=== PATIENT | male | born 1995 | race African-American/Black ===

== ENCOUNTER 2018-03-13 13:03 | Emergency (ER) | payer SELFPAY ==
[~2018-03-13] VITALS: Ht 160 cm; Wt 73.0 kg
[2018-03-13] MEDS ORDERED: KETOROLAC 60MG/2ML VIAL IM ONE (14:30)
[2018-03-13 17:30] VITALS: BP 126/79
== END 2018-03-13 17:40 | disposition home or self-care (01) ==
LOC: ER 13:03
DX: S82.52XA Displaced fracture of medial malleolus of left tibia, initial encounter for closed fracture (principal); S82.832A Other fracture of upper and lower end of left fibula, initial encounter for closed fracture; W50.2XXA Accidental twist by another person, initial encounter; Y93.89 Activity, other specified; Y92.89 Other specified places as the place of occurrence of the external cause; Y99.8 Other external cause status
CPT/HCPCS: 29515; 73610; 96372; 99284; J1885

== ENCOUNTER 2019-08-05 07:21 | Emergency (ER) | payer SELFPAY ==
[~2019-08-05] VITALS: Ht 160 cm; Wt 64.0 kg
[2019-08-05 07:33] VITALS: BP 126/87
== END 2019-08-05 08:05 | disposition home or self-care (01) ==
LOC: ER 08:04
DX: Z00.00 Encounter for general adult medical examination without abnormal findings (principal)
CPT/HCPCS: 99282

== ENCOUNTER 2019-08-05 17:03 | Emergency (ER) | payer SELFPAY ==
[~2019-08-05] VITALS: Ht 160 cm; Wt 63.0 kg
[2019-08-05 17:16] VITALS: BP 121/73
== END 2019-08-05 18:02 | disposition home or self-care (01) ==
LOC: ER 17:03
DX: I49.1 Atrial premature depolarization (principal)
CPT/HCPCS: 93005; 99283

== ENCOUNTER 2019-08-11 08:55 | Emergency (ER) | payer SELFPAY ==
[~2019-08-11] VITALS: Ht 160 cm; Wt 66.0 kg
[2019-08-11 09:14] VITALS: BP 127/63
== END 2019-08-11 11:05 | disposition home or self-care (01) ==
LOC: ER 08:55
DX: R00.2 Palpitations (principal); R00.0 Tachycardia, unspecified
CPT/HCPCS: 93005; 99283

== ENCOUNTER 2019-08-19 08:18 | Emergency (ER) | payer OTHER ==
[~2019-08-19] VITALS: Ht 162.6 cm; Wt 56.0 kg
[2019-08-19 09:57] LABS: BASOPHILS % 0.7 % (0.0-2.0); EOSINOPHILS % 0.7 % (0.0-5.0); HEMATOCRIT. 50.9 % (42.0-52.0); HEMOGLOBIN. 17.6 g/dL (14.0-18.0); LYMPHOCYTES % 15.9 % (20.0-50.0); MEAN CORPUSCULAR HEMOGLOBIN 29.8 pg (28.0-32.0); MEAN PLATELET VOLUME 9.4 fl (7.4-10.4); MONOCYTES % 5.6 % (2.0-8.0); NEUTROPHILS % 77.1 % (40.0-76.0); PLATELET 276 x1000/uL (130-400); RED BLOOD CELL COUNT 5.92 mill/uL (4.7-6.1); RED CELL DISTRIBUTION WIDTH 12.7 % (11.6-14.6)
[2019-08-19 10:08] LABS: CHLORIDE 102 mEq/L (98-107)
[2019-08-19 10:54] VITALS: BP 135/84
== END 2019-08-19 11:03 | disposition home or self-care (01) ==
LOC: ER 08:26
DX: R00.2 Palpitations (principal)
CPT/HCPCS: 36415; 71045; 80053; 83880; 84484; 85025; 93005; 99285